=== PATIENT | female | born 1985 | race Caucasian/White ===

== ENCOUNTER 2020-01-30 21:11 | Emergency (ER) | payer BC ==
[~2020-01-30] VITALS: Ht 167.6 cm; Wt 54.4 kg
[2020-01-30 21:37] VITALS: BP 116/77; Ht 167.6 cm; Wt 54.4 kg
[2020-01-30] MEDS ORDERED: AUGMENTIN 875-11 TAB PO (21:46)
== END 2020-01-30 22:35 | disposition home or self-care (01) ==
LOC: D.ER 21:11
DX: S61.242A Puncture wound with foreign body of right middle finger without damage to nail, initial encounter (principal); X58.XXXA Exposure to other specified factors, initial encounter